=== PATIENT | female | born 1985 | race African-American/Black ===

== ENCOUNTER 2017-07-17 16:04 | Emergency (ER) | payer OTHER ==
[~2017-07-17] VITALS: Ht 180.3 cm; Wt 107.4 kg
[~2017-07-17 16:04] MED LIST: NOHOMEMEDS
[2017-07-17] MEDS ORDERED: LISINOPRIL20 MG PO (18:41)
[2017-07-17] MEDS ORDERED: LISINOPRIL10 MG PO (18:48)
[2017-07-17 19:01] VITALS: BP 150/115
== END 2017-07-17 19:03 | disposition home or self-care (01) ==
LOC: EME 16:04
DX: R03.0 Elevated blood-pressure reading, without diagnosis of hypertension (principal); F17.200 Nicotine dependence, unspecified, uncomplicated
CPT/HCPCS: 71020; 99281; 99284

== ENCOUNTER 2017-07-20 01:40 | Emergency (ER) | payer OTHER ==
[~2017-07-20 01:40] MED LIST changes: +LISINOPRIL10 MG PO; +LISINOPRIL20 MG PO
[2017-07-20 03:25] LABS: BASOPHIL COUNT 0.1 K/uL (0-0.1); EOSINOPHIL (%) 1.8 % (0-5); EOSINOPHIL COUNT 0.2 K/uL (0-0.3); HEMATOCRIT 35.5 % (36.0-46.0); IMMATURE GRANULOCYTE (%) 0.2 % (0.0-0.7); LYMPHOCYTE COUNT 4.1 K/uL (1.0-2.8); MCH 25.1 PG (29.0-34.0); MCHC 31.5 G/DL (30.0-36.0); MCV 79.6 FL (83-99); MEAN PLAT.VOLUME 10.9 uM^3 (9.5-12.4); MONOCYTE (%) 5.8 % (3-12); MONOCYTE COUNT 0.5 K/uL (0-0.8); NEUTROPHIL (%) 45.5 % (45-76); PLATELET COUNT 355 K/uL (156-360); RBC DIS.WIDTH-CV 15.4 % (11.8-14.6); RBC DIS.WIDTH-SD 44.4 % (39-53); RED BLOOD COUNT 4.46 M/uL (3.80-5.20); WHITE BLOOD COUNT 8.8 K/uL (4.1-10.2)
[2017-07-20 03:29] LABS: CHLORIDE 108 mEq/L (99-109); POTASSIUM 3.8 mEq/L (3.7-5.4); SODIUM 140 mEq/L (136-147)
[2017-07-20 03:31] LABS: GLUCOSE 81 mg/dL (70-99)
[2017-07-20 03:32] LABS: ANION GAP 11 MEQ/L (2-14)
[2017-07-20 03:33] LABS: D-DIMER ELISA < 150.00 ng/mLDDU (<230)
[2017-07-20 03:35] LABS: GFR ESTIMATE (CALCULATED) > 59 mL/min/
[2017-07-20 03:36] LABS: UREA NITROGEN (BUN) 11 mg/dL (9-23)
[2017-07-20 03:43] LABS: TROP-I INTERPRETATION NEGATIVE; TROPONIN-I < 0.01 ng/mL (0.0-0.30)
[2017-07-20] MEDS ORDERED: FIORICET 50-301 EACH PO (04:18)
== END 2017-07-20 05:50 | disposition home or self-care (01) ==
LOC: EME 01:40
PROVIDERS: Emergency Medicine
DX: R07.9 Chest pain, unspecified (principal); I10 Essential (primary) hypertension; F17.200 Nicotine dependence, unspecified, uncomplicated
CPT/HCPCS: 71020; 80048; 84484; 85025; 85379; 93005; 99281; 99284; J1200; J1885; J2765